=== PATIENT | female | born 1960 | race Caucasian/White ===

== ENCOUNTER 2016-11-11 16:39 | Emergency (ER) | payer MEDICAID ==
[2016-11-11] MEDS ORDERED: OPTIRAY 350 100 ML VIAL HMH IV ONE (16:40)
[2016-11-11] MEDS ORDERED: DILAUDID 1 MG/ML AMP ONE ×2 (17:52→20:18)
[2016-11-11] MEDS ORDERED: SODIUM CHLORIDE 0.9% 1,000 ML ONE (17:53)
[2016-11-11] MEDS ORDERED: ONDANSETRON 4 MG VIAL ONE (17:53)
[2016-11-11] MEDS ORDERED: KETOROLAC 30 MG/ML VIAL ONE (20:17)
[2016-11-11] MEDS ORDERED: METHYLPRED SOD SUCC 125 MG/2 ML VIAL ONE (20:18)
[2016-11-11] MEDS ORDERED: ED CLINDAMYCIN PREMIX 50 ML IV ONE (20:18)
== END 2016-11-11 21:33 | disposition home or self-care (01) ==
LOC: ER 16:39
DX: K11.20 Sialoadenitis, unspecified (principal); I10 Essential (primary) hypertension; E11.9 Type 2 diabetes mellitus without complications; J44.9 Chronic obstructive pulmonary disease, unspecified; I25.10 Atherosclerotic heart disease of native coronary artery without angina pectoris; Z79.82 Long term (current) use of aspirin; Z79.51 Long term (current) use of inhaled steroids; Z79.4 Long term (current) use of insulin; F17.200 Nicotine dependence, unspecified, uncomplicated
CPT/HCPCS: 36415; 70491; 80053; 83605; 85025; 85610; 85730; 87040; 96361; 96365; 96375; 96376